=== PATIENT | male | born 2005 | race Caucasian/White ===

== ENCOUNTER 2025-05-24 14:03 | Emergency (ER) | payer SELFPAY ==
[2025-05-24 14:05] VITALS: PULSE 72; RESP 15; O2SAT 99
== END 2025-05-24 16:12 | disposition left against medical advice (07) ==
LOC: ER 14:03
DX: R51.9 Headache, unspecified (principal); Z53.21 Procedure and treatment not carried out due to patient leaving prior to being seen by health care provider